=== PATIENT | male | born 1970 | race Caucasian/White ===

== ENCOUNTER 2019-05-29 14:24 | Outpatient (CLI) | payer OTHER ==
--- NOTE | 2019-05-29 15:37 | MRI ---
MRI RIGHT ANKLE WITHOUT CONTRAST: Date: 05/29/19 INDICATION: Ankle pain and swelling. COMPARISON: None. FINDINGS: There is a partial thickness split tear involving the peroneus brevis at the level of the lateral mal leolus that extends through the retinaculum and reconstitutes at the level of the calcaneal head. The re is prominent peroneal tenosynovitis. Medial flexor tendons appear within normal limits. The extensor tendons are normal appearing. Lola s tendon is normal appearing. The ATFL, PTFL, calcaneal fibula, syndesmotic ligament, and deltoid ligament appears intact. The spri ng ligament appears intact. There is some mild increased T2 signal seen at the plantar insertion of t he plantar fascia suspicious for some mild plantar fasciitis. This is most prominently involving the medial plantar fascial band. No osteochondral defect is evident. No joint effusion is noted. Visualiz ed aspects of the Lisfranc ligament appear intact. IMPRESSION: 1. Partial thickness split tear of the peroneus brevis with peroneal tenosynovitis. 2. The intrinsic ligaments of the ankle appear intact. POS: [facility]
== END 2019-05-29 14:25 | disposition home or self-care (01) ==
LOC: TBSIIMAG 14:24
PROVIDERS: ATTEND Orthopaedic Surgery
DX: M25.571 Pain in right ankle and joints of right foot (principal); S96.811A Strain of other specified muscles and tendons at ankle and foot level, right foot, initial encounter; M65.871 Other synovitis and tenosynovitis, right ankle and foot

== ENCOUNTER 2019-12-15 00:12 | Emergency (ER) | payer OTHER ==
[2019-12-15 00:40] LABS: #Basophils 0.1 thou/uL (0.0-0.2); #Eosinphils 0.2 thou/uL (0.0-0.7); #Lymphocytes 2.3 thou/uL (1.20-3.40); #Monocytes 0.8 thou/uL (0.11-0.59); #Neutrophils 4.3 thou/uL (1.40-6.50); %Basophils 0.7 % (0.0-1.0); %Eosinophils 3.3 % (0.0-10.0); %Lymphocytes 29.7 % (21.0-51.0); %Monocytes 10.3 % (0.0-10.0); %Neutrophils 56.1 % (42.0-75.0); Hemoglobin 15.9 g/dL (14.0-18.0); Mean Corpuscular HGB CONC 34.9 g/dL (32.0-36.0); Mean Corpuscular Hemoglobin 32.8 pg (27.0-31.0); Mean Platelet Volume 8.7 fL (7.4-10.4); Platelet Count 177 thou/uL (130-400); RBC Distribution Width 12.5 % (11.5-14.5); Red Blood Cell (RBC) Count 4.84 mill/uL (4.70-6.10); White Blood Cell (WBC) Count 7.6 thou/uL (4.8-10.8)
[2019-12-15] MEDS ORDERED: Sucralfate 1 GM/10 ML UDCUP ONE (00:41)
[2019-12-15] MEDS ORDERED: Ondansetron PF 4 MG/2 ML Vial ONE (00:41)
[2019-12-15 01:01] LABS: ALT (SGPT) 33 U/L (8-55); AST (SGOT) 25 U/L (5-34); Albumin 4.3 g/dL (3.5-5.0); Alkaline Phosphatase 46 U/L (40-110); Anion Gap 12 mmol/L (10-20); BUN (Urea Nitrogen) 10 mg/dL (8.4-25.7); Bilirubin, Total 0.5 mg/dL (0.2-1.2); CK (CPK) 274 U/L (30-200); Calc. Creatinine Clearance 0 mL/min (70-130); Calcium 9.4 mg/dL (7.8-10.44); Carbon Dioxide 24 mmol/L (22-29); Chloride 105 mmol/L (98-107); Estimated GFR-MDRD 70; Globulin 2.9 g/dL (2.4-3.5); Glucose 128 mg/dL (70-105); Lipase 42 U/L (8-78); Potassium 3.6 mmol/L (3.5-5.1); Protein, Total 7.2 g/dL (6.0-8.3); Sodium 137 mmol/L (136-145)
--- NOTE | 2019-12-16 12:12 | EKG ---
Test Reason : Blood Pressure : / mmHG Vent. Rate : 087 BPM Atrial Rate : 087 BPM P-R Int : 166 ms QRS Dur : 096 ms QT Int : 370 ms P-R-T Axes : 030 -28 -02 degrees QTc Int : 445 ms Normal sinus rhythm Moderate voltage criteria for LVH, may be normal variant Borderline ECG Confirmed by RANJEET YUN ([id number]), editorial writer JAVIER PORTER ([id number]) on 12/16/2019 12:12:53 PM Referred By: Confirmed By:RANJEET YUN
== END 2019-12-15 01:44 | disposition home or self-care (01) ==
LOC: ERS 00:12
DX: K21.9 Gastro-esophageal reflux disease without esophagitis (principal); F41.9 Anxiety disorder, unspecified; E78.1 Pure hyperglyceridemia; F17.210 Nicotine dependence, cigarettes, uncomplicated; Z79.899 Other long term (current) drug therapy
CPT/HCPCS: 36415; 80053; 82550; 83690; 84484; 85025; 93005; 94760; 96374; J2405